=== PATIENT | male | born 1965 | race Caucasian/White ===

== ENCOUNTER 2021-01-26 11:44 | Day surgery (SDC) | payer OTHER ==
[~2021-01-26] VITALS: Ht 175.4 cm; Wt 132.2 kg
[2021-01-26] VITALS (9 sets, daily range): BP systolic 104–128; BP diastolic 63–91; PULSE 53–68; TEMP 98.2
[2021-01-26 11:31] LABS: CALCIUM 9.4 mg/dL (8.4-10.2); CREATININE, serum 1.08 (0.66-1.25)
[2021-01-26 11:34] LABS: HEMATOCRIT 46.7 % (42.0-52.0); HEMOGLOBIN 16.1 g/dl (13.5-18.0); MEAN CELL VOLUME 89 fl (80.0-100.0); MEAN CORPUSCULAR HEMOGLOBIN 31 pg (27.0-31.0); MEAN CORPUSCULAR HGB CONC 35 g/dl (33.0-37.0); MEAN PLATELET VOLUME 10.8 fl (7.4-10.4); PLATELET COUNT 256 K/mm3 (130-400); RED BLOOD COUNT 5.27 M/mm3 (4.20-5.60); REDCELL DISTRIBUTION WIDTH-CV 12.6 % (11.5-14.5)
[2021-01-26 11:36] LABS: INR 1.2 (0.8-3.0); PROTHROMBIN TIME 12.9 SECONDS (9.7-12.8)
[2021-01-26 11:38] LABS: PARTIAL THROMBOPLASTIN TIME 37.1 SECONDS (26.0-37.0)
[~2021-01-26 11:44] MED LIST: ASPIRIN E.C. 8181 MG PO; BENEMID500 MG PO; COZAAR 50MG50 MG/TAB PO; K-TAB20 PO; MAXZIDE-25MG TA1 TAB PO; PROTONIX 40MG T40 MG PO; ZOCOR 40MG40 MG PO
--- NOTE | 2021-01-26 13:30 | NUR ---
Report from Tammy WRAY. Transferred from [facility] by bed to [facility]. Alert and oriented, denies pain and needs at this time. Right Tband with 15 cc air CD&I, good pulses and cap refill < 3 secs noted. VSS. bedside
--- NOTE | 2021-01-26 15:45 | NUR ---
Right Tband released of 15 cc air and dressing applied to site. INT discontinued intact. Discharge instructions given.
--- NOTE | 2021-01-26 15:56 | NUR ---
Transferred to private car by vera
== END 2021-01-26 15:57 | disposition home or self-care (01) ==
LOC: COL.CAR 11:44
PROVIDERS: Internal Medicine Cardiovascular Disease
DX: I48.0 Paroxysmal atrial fibrillation (principal); R94.39 Abnormal result of other cardiovascular function study; Z20.822 Contact with and (suspected) exposure to COVID-19
CPT/HCPCS: C1769; J1644; J2250; J3010